=== PATIENT | male | born 1975 | race Caucasian/White ===

== ENCOUNTER 2021-02-23 12:38 | Inpatient (IN) | payer OTHER ==
[~2021-02-23] VITALS: Ht 180.3 cm; Wt 117.1 kg
[2021-02-23] MEDS ORDERED: JARDIANCE10 MG PO (19:34)
[2021-02-23] MEDS ORDERED: GLYBURIDE-METF1 EAC1 PO (19:34)
[2021-02-23] MEDS ORDERED: OMEPRAZOLE20 MG PO (19:34)
[2021-02-23] MEDS ORDERED: LANTUS SOL100 UNIT/1 SQ (19:35)
[2021-02-23 20:02] LABS: HEMOGLOBIN 14.9 gm/dl (14.0-17.5); RED BLOOD COUNT 4.78 M/UL (4.20-5.50); WHITE BLOOD COUNT 9.8 K/UL (4.5-11.0)
[2021-02-23 20:24] LABS: BUN/CREATININE RATIO 24 (0-10)
[2021-02-24 05:00] LABS: HEMOGLOBIN 14.8 gm/dl (14.0-17.5); RED BLOOD COUNT 4.71 M/UL (4.20-5.50); WHITE BLOOD COUNT 8.9 K/UL (4.5-11.0)
[2021-02-24 05:21] LABS: BUN/CREATININE RATIO 19 (0-10)
--- NOTE | 2021-02-24 14:28 | NUR ---
PATIENT VERY NON-COMPLIANT WITH MD ORDERS. EATING FOOD BROUGHT IN FROM OUTSIDE OF HOSPITAL, DRINKING M[place] DEW AND NO WATER. EDUCATED PATIENT ON WALKER USE AND THE IMPORTANCE OF MAINTAINING NON-WEIGHT BEARING TO AFFECTED EXTREMITY. PATIENT SEEN WALKING IN ROOM WITHOUT WALKER. REMINDED PATIENT OF IMPORTANCE TO HEALING TO KEEP WEIGHT OFF AFFECTED EXTREMITY AND TO FOLLOW DIETARY ORDERS PER MD TO KEEP BLOOD SUGAR MANAGEABLE. PATIENT IS AGREEABLE BUT THEN REMAINS NON-COMPLIANT. WILL CONTINUE TO REINFORCE EDUCATION.
[2021-02-25 04:52] LABS: HEMOGLOBIN 15.2 gm/dl (14.0-17.5); RED BLOOD COUNT 4.83 M/UL (4.20-5.50); WHITE BLOOD COUNT 9.8 K/UL (4.5-11.0)
[2021-02-25 05:15] LABS: BUN/CREATININE RATIO 18 (0-10)
--- NOTE | 2021-02-25 15:39 | NUR ---
PATIENT NOTED TO HAVE LEFT HIS ROOM TO GO OUTSIDE TO SMOKE. PATIENT HAS DONE THIS SEVERAL TIMES SINCE HE HAD BEEN ADMITTED. RN ASKED TRES BROWNING IF SHE HAD SEEN HIM AND SHE SAID THAT SHE SAW HIM APPROXIMATELY 30 MINUTES AGO SITTING IN HIS TRUCK IN THE PARKING LOT. NAM WENT DOWNSTAIRS TO SEE IF HIS TRUCK WAS STILL IN THE PARKING LOT AND IT WAS NOT. RN INFORMED SUPERVISOR TANK STORAGE. SUPERVISOR TANK STORAGE INSTRUCTED RN TO NOTIFY MD AND HAVE SECURITY SEARCH THE PERIMETER. RN NOTIFIED SECURITY, SECURITY PERFORMED A SEARCH WITH NO SUCCESS. RN CONTACTED PATIENT'S EMERGENCY CONTACT MANISH, HIS MOTHER, WHO STATED THAT HE HAD LEFT THE FACILITY AND WENT TO GET SOMETHING TO EAT WITH HIS GIRLFRIEND. RN THANKED MANISH FOR HER INFORMATION AND NOTIFIED PATIENT'S MD, DR. ROACH. MD INSTRUCTED RN TO WRITE A NOTE IN THE CHART THAT PATIENT HAD LEFT THE PREMISES AND CONTACT HIM IF HE RETURNED IN THE TIME FRAME PATIENT'S MOTHER MANISH HAD VERBALIZED. SUPERVISOR TANK STORAGE AND STAFF MADE AWARE.
--- NOTE | 2021-02-25 16:17 | NUR ---
PATIENT NOTED TO STILL BE GONE FROM FACILITY. RN CONTACTED PATIENT'S MOTHER, MANISH, AND NOTIFIED HER. RN INFORMED THIRD CONSTITUTION PARTY OF THE DANGERS OF LEAVING THE FACILITY BOTH WITH AN IV IN PLACE WELL WITHOUT NOTIFYING THE APPROPRIATE PARTIES AND ULTIMATELY LEAVING THE FACILITY AGAINST MEDICAL ADVICE. RN ASKED PATIENT'S MOTHER IS SHE HAD A PHONE NUMBER FOR HER SON SO THAT HE COULD BE TOLD DIRECTLY ABOUT THESE DANGERS AND THE MOTHER STATED THAT HE COULD ONLY TEXT ON HIS PHONE AND REFUSED TO GIVE PATIENT'S PHONE NUMBER TO RN. RN VERBALIZED UNDERSTANDING AND CONTINUED TO EXPRESS CONCERN ABOUT PATIENT'S RISK FOR INFECTION AND INJURY. RN INSTRUCTED PATIENT'S MOTHER TO INFORM PATIENT THAT THE FACILITY IS UNABLE TO HOLD HIS BED WHILE HE IS OFF THE PREMESIS AND CONTINUING TO IGNORE MEDICAL ADVICE. PATIENT'S MOTHER VERBALIZED UNDERSTANDING AND STATED SHE WOULD LET HIM KNOW.
--- NOTE | 2021-02-25 16:25 | NUR ---
PATIENT'S GIRLFRIEND, DEMETRIA, CALLED THE FACILITY AND INFORMED RN THAT THE PATIENT WAS ON HIS WAY BACK TO THE FACILITY AND WOULD BE THERE WITHIN 15 MINUTES. RN ASKED DEMETRIA FOR A CALL BACK NUMBER SO SHE COULD ASK WIRER PASSENGER CAR HOW TO PROCEED. WIRER PASSENGER CAR VERBALIZED THAT RN COULD ALLOW PATIENT 15 MORE MINUTES TO RETURN TO THE FACILITY, BUT AFTER THAT THE PATIENT WOULD BE DISCHARGED AN ELOPMENT AND MUST BE READMITTED THROUGH THE ER. RN CALLED PATIENT'S GIRLFRIEND BACK AND TOLD HER WHAT WIRER PASSENGER CAR SAID. PATIENT'S GIRLFRIEND VERBALIZED UNDERSTANDING AND STATED THAT THEY WERE ON THEIR WAY. RN MADE MD AND WIRER PASSENGER CAR AWARE. SECURITY ALSO MADE AWARE. STAFF ANTICIPATING PATIENT RETURN.
--- NOTE | 2021-02-25 16:59 | NUR ---
PATIENT HAS STILL NOT RETURNED TO FACILITY. UNABLE TO REACH GIRLFRIEND DEMETRIA ON THE CALL BACK NUMBER LEFT EARLIER. RN INFORMED AGING DEPARTMENT SUPERVISOR. HOUSE INSTRUCTED RN TO INFORM PATIENT IF HE ARRIVED TO ER THAT HE MUST BE READMITTED AND TO HAVE HIS IV REMOVED. RN NOTIFIED SECURITY TO WATCH FOR PATIENT AND PROVIDED DESCRIPTION OF PATIENT'S PRIVATE VEHICLE AND PERSONAL DESCRIPTION. RN INSTRUCTED SECURITY TO INFORM HER IF HE ARRIVED SO HIS IV COULD BE SAFELY REMOVED AND HE COULD BE EDUCATED ON THE DANGERS OF LEAVING WITHOUT NOTIFYING MEDICAL PERSONNEL. MADE AWARE.
--- NOTE | 2021-02-25 17:14 | NUR ---
PATIENT RECEIVED CALL FROM SECURITY THAT PATIENT WAS IN THE ER. RN NOTIFIED PLYWOOD MATCHER AND DR. CROFT OF PATIENT'S RETURN.
--- NOTE | 2021-02-25 17:18 | NUR ---
PATIENT RETURNED TO 5118. MANAGER OF EXHIBITIONS AND COLLECTIONS AND MD MADE AWARE. NO S/SX OF PAIN, DISCOMFORT, OR DISTRESS.
--- NOTE | 2021-02-25 17:34 | NUR ---
PATIENT'S HEART RATE NOTED TO BE RUNNING IN THE 160'S. PATIENT EDUCATED BY POWER SCREWDRIVER OPERATOR THAT IF HE LEAVES THE FACILITY WITHOUT NOTIFYING ANYONE, HIS BED WILL NOT BE HELD AGAIN. PATIENT STATED THAT HIS IV HAD FALLEN OUT ON HIS JOURNEY EARLIER. NO S/SX OF SKIN INJURY OR DRAINAGE NOTED TO PREVIOUS IV SITE. SITTING UP IN CHAIR WITH GIRLFRIEND AT BEDSIDE. CALL LIGHT WITHIN REACH.
[2021-02-26 04:36] LABS: BUN/CREATININE RATIO 14 (0-10)
--- NOTE | 2021-02-26 09:32 | NUR ---
DR. COLLADO NOTIFIED RN OF PATIENT'S DISCHARGE, RN INFORMED MD OF PATIENT'S REFUSAL OF HEART AND BLOOD PRESSURE MEDICATIONS. MD STATED SHE WAS AWARE OF PATIENT'S HISTORY OF REFUSAL OF MEDICATIONS AND THAT SHE WOULD PRESCRIBE MEDICATIONS OUTPATIENT ACCORDING TO PATIENT NEEDS AND COMPLIANCE WOULD BE UP TO PATIENT HE IS ALERT AND ORIENTED. RN VERBALIZED UNDERSTANDING.
[2021-02-26] MEDS ORDERED: LOPRESSOR 25 MG25 MG PO (09:47)
[2021-02-26] MEDS ORDERED: LANTUS SOL100 UNIT/1 SQ (09:47)
[2021-02-26] MEDS ORDERED: ACETAMINOPHEN325 MG PO (09:47)
[2021-02-26] MEDS ORDERED: BACTRIM DS TAB1 EACH PO (09:47)
[2021-02-26] MEDS ORDERED: LISINOPRIL5 MG PO (09:47)
[2021-02-26] MEDS ORDERED: crutches EXT (09:47)
--- NOTE | 2021-02-26 11:03 | NUR ---
INSTRUCTED PATIENT ON NEW MEDS KEEP SOCKS AND SHOES ON AT ALL TIMES CHECK FEET EACH NIGHT. REPORT ANY BROKENS AREAS OR REDNESS ON FEET. KEEP FOLLOW UP APPOINTMENTS. KEEP FOOT WOUND CLEAN AND DRY. VERBALIZED UNDERSTANDING. DEDE TAVERAS R.N.
== END 2021-02-26 12:03 | disposition home or self-care (01) | DRG 638 ==
LOC: M/S 17:23
PROVIDERS: Internal Medicine Infectious Disease; ADMIT Family Medicine
DX: E11.628 Type 2 diabetes mellitus with other skin complications (principal); L03.116 Cellulitis of left lower limb; E11.40 Type 2 diabetes mellitus with diabetic neuropathy, unspecified; Z20.822 Contact with and (suspected) exposure to COVID-19; I10 Essential (primary) hypertension; E78.5 Hyperlipidemia, unspecified; F41.9 Anxiety disorder, unspecified; K21.9 Gastro-esophageal reflux disease without esophagitis; E87.6 Hypokalemia; Z79.4 Long term (current) use of insulin; Z91.14 Patient's other noncompliance with medication regimen
CPT/HCPCS: 36415; 73630; 73721; 80048; 80053; 80202; 82962; 83036; 85025; 85027; 85652; 86140; 87040; 87070; 87077; 87186; 87205; J1650; J2543; J3370; J7050; U0002

== ENCOUNTER 2021-05-30 18:27 | Inpatient (IN) | payer OTHER ==
[~2021-05-30] VITALS: Ht 185.4 cm; Wt 122.5 kg
[~2021-05-30 18:27] MED LIST: ACETAMINOPHEN325 MG PO; BACTRIM DS TAB1 EACH PO; GLYBURIDE-METF1 EAC1 PO; JARDIANCE10 MG PO; LANTUS SOL100 UNIT/1 SQ; LISINOPRIL5 MG PO; LOPRESSOR 25 MG25 MG PO; OMEPRAZOLE20 MG PO; crutches EXT
[2021-05-30 20:16] LABS: HEMOGLOBIN 13.9 gm/dl (14.0-17.5); RED BLOOD COUNT 4.74 M/UL (4.20-5.50); WHITE BLOOD COUNT 13.3 K/UL (4.5-11.0)
[2021-05-30 20:40] LABS: BUN/CREATININE RATIO 23 (0-10)
[2021-05-31 03:49] LABS: HEMOGLOBIN 12.7 gm/dl (14.0-17.5); RED BLOOD COUNT 4.35 M/UL (4.20-5.50); WHITE BLOOD COUNT 11.6 K/UL (4.5-11.0)
[2021-05-31 04:13] LABS: BUN/CREATININE RATIO 21 (0-10)
[2021-05-31] MEDS ORDERED: LISINOPRIL40 MG PO (09:52)
[2021-05-31] MEDS ORDERED: AMLODIPINE BESYL5 MG PO (11:49)
[2021-05-31] MEDS ORDERED: BUSPIRONE HCL10 MG PO (11:50)
[2021-05-31] MEDS ORDERED: BASAGLAR K100 UNIT/1 SQ (11:50)
[2021-06-01 04:53] LABS: RED BLOOD COUNT 4.5 M/UL (4.20-5.50); WHITE BLOOD COUNT 10.1 K/UL (4.5-11.0)
[2021-06-01 05:15] LABS: BUN/CREATININE RATIO 17 (0-10)
[2021-06-02 04:32] LABS: HEMOGLOBIN 13.9 gm/dl (14.0-17.5); RED BLOOD COUNT 4.8 M/UL (4.20-5.50)
[2021-06-02 04:41] LABS: WHITE BLOOD COUNT 16.9 K/UL (4.5-11.0)
[2021-06-03 04:14] LABS: HEMOGLOBIN 13.3 gm/dl (14.0-17.5); RED BLOOD COUNT 4.52 M/UL (4.20-5.50); WHITE BLOOD COUNT 18.5 K/UL (4.5-11.0)
[2021-06-04 06:53] LABS: HEMOGLOBIN 13.3 gm/dl (14.0-17.5); RED BLOOD COUNT 4.62 M/UL (4.20-5.50); WHITE BLOOD COUNT 16.2 K/UL (4.5-11.0)
[2021-06-05 04:41] LABS: HEMOGLOBIN 13.7 gm/dl (14.0-17.5); RED BLOOD COUNT 4.7 M/UL (4.20-5.50); WHITE BLOOD COUNT 14.3 K/UL (4.5-11.0)
[2021-06-06 07:19] LABS: RED BLOOD COUNT 4.46 M/UL (4.20-5.50); WHITE BLOOD COUNT 13.7 K/UL (4.5-11.0)
[2021-06-06] MEDS ORDERED: ONDANSETRON4 MG/2 M2 IV (10:35)
[2021-06-06] MEDS ORDERED: PROTONIX 40 MG40 M1 PO (10:35)
[2021-06-06] MEDS ORDERED: LANTUS INS100 UTS/M1 SQ (10:35)
[2021-06-06] MEDS ORDERED: HEPARIN SO5000 UNIT2 SC (10:35)
[2021-06-06] MEDS ORDERED: HUMALOG 10100 UNITS/ SC (10:35)
[2021-06-06] MEDS ORDERED: LOPRESSOR 25 MG25 MG PO (10:35)
[2021-06-06] MEDS ORDERED: FIRST AID ANT28.4 G1 TOP (10:35)
[2021-06-06] MEDS ORDERED: PERCOCET 5/325 T1 EA PO (10:35)
[2021-06-06 11:14] LABS: COMPLEMENT C3, SERUM 164 mg/dL (82-167); COMPLEMENT C4, SERUM 40 mg/dL (12-38)
[2021-06-06 11:14] LABS: CREATININE, URINE 35.3 mg/dL (Not Estab.)
--- NOTE | 2021-06-06 14:55 | NUR ---
REPORT CALLED TO JESSICA AT [facility].
== END 2021-06-06 17:40 | DRG 239 ==
LOC: ER1 18:27 → MED SURG 4 21:22 → CDU 21:22 → MED SURG 4 05-31 15:44
PROVIDERS: Internal Medicine; Internal Medicine Nephrology; Physician Assistant; Physician Assistant Medical; Podiatrist Foot & Ankle Surgery; ADMIT Family Medicine
PROC: 0JBR0ZZ Excision of Left Foot Subcutaneous Tissue and Fascia, Open Approach (ICD-10-PCS; 2021-06-01)
PROC: 0Y6N0Z8 Detachment at Left Foot, Complete 5th Ray, Open Approach (ICD-10-PCS; principal; 2021-06-01 18:54)
PROC: 0HRNXK3 Replacement of Left Foot Skin with Nonautologous Tissue Substitute, Full Thickness, External Approach (ICD-10-PCS; principal; 2021-06-01 18:54)
DX: E11.52 Type 2 diabetes mellitus with diabetic peripheral angiopathy with gangrene (principal); A48.0 Gas gangrene; N17.0 Acute kidney failure with tubular necrosis; M86.8X7 Other osteomyelitis, ankle and foot; I47.1 Supraventricular tachycardia; E87.1 Hypo-osmolality and hyponatremia; E11.69 Type 2 diabetes mellitus with other specified complication; Z20.822 Contact with and (suspected) exposure to COVID-19; E11.42 Type 2 diabetes mellitus with diabetic polyneuropathy; E66.01 Morbid (severe) obesity due to excess calories; F41.9 Anxiety disorder, unspecified; K21.9 Gastro-esophageal reflux disease without esophagitis; E86.1 Hypovolemia; N52.9 Male erectile dysfunction, unspecified; I10 Essential (primary) hypertension; G89.29 Other chronic pain; F17.210 Nicotine dependence, cigarettes, uncomplicated; F19.10 Other psychoactive substance abuse, uncomplicated; Z79.4 Long term (current) use of insulin; Z91.14 Patient's other noncompliance with medication regimen; Z82.61 Family history of arthritis; Z68.35 Body mass index [BMI] 35.0-35.9, adult
CPT/HCPCS: 36415; 73630; 80048; 80053; 80202; 81001; 82043; 82550; 82553; 82565; 82570; 82803; 82962; 83605; 84156; 85025; 85027; 85652; 86140; 86160; 87040; 87070; 87077; 87186; 87205; 93926; 97161; 97165; 99284; G0378; J0295; J0360; J1100; J1335; J1644; J1650; J2001; J2185; J2405; J2543; J2704; J2795; J3370; J7030; J7040; J7070; J7120; Q4133; U0002

== ENCOUNTER 2022-07-01 20:15 | Observation (INO) | payer OTHER ==
[~2022-07-01] VITALS: Ht 185.4 cm; Wt 104.3 kg
[~2022-07-01 20:15] MED LIST changes: +AMLODIPINE BESYL5 MG PO; +BASAGLAR K100 UNIT/1 SQ; +BUSPIRONE HCL10 MG PO; +FIRST AID ANT28.4 G1 TOP; +HEPARIN SO5000 UNIT2 SC; +HUMALOG 10100 UNITS/ SC; +LANTUS INS100 UTS/M1 SQ; +LISINOPRIL40 MG PO; +ONDANSETRON4 MG/2 M2 IV; +PERCOCET 5/325 T1 EA PO; +PROTONIX 40 MG40 M1 PO
[2022-07-01 23:03] LABS: HEMOGLOBIN 14.3 gm/dl (14.0-17.5); RED BLOOD COUNT 4.78 M/UL (4.20-5.50); WHITE BLOOD COUNT 12.3 K/UL (4.5-11.0)
[2022-07-01 23:11] LABS: BUN/CREATININE RATIO 51 (0-10)
[2022-07-02 05:55] LABS: BUN/CREATININE RATIO 50 (0-10)
[2022-07-02] MEDS ORDERED: JARDIANCE10 MG PO (10:39)
[2022-07-02] MEDS ORDERED: GLYBURIDE-METF1 EAC1 PO (10:39)
[2022-07-02] MEDS ORDERED: OMEPRAZOLE20 MG PO (10:40)
[2022-07-02 11:49] LABS: BUN/CREATININE RATIO 49 (0-10)
[2022-07-02] MEDS ORDERED: ZESTRIL 40 MG T40 MG PO (17:41)
[2022-07-02] MEDS ORDERED: NORVASC5 MG PO (17:41)
[2022-07-03 09:20] LABS: BUN/CREATININE RATIO 41 (0-10)
[2022-07-03] MEDS ORDERED: GLYBURIDE-METF1 EAC1 PO (10:26)
[2022-07-03] MEDS ORDERED: LANTUS INS100 UTS/M1 SQ (10:26)
[2022-07-03] MEDS ORDERED: JARDIANCE10 MG PO (10:26)
[2022-07-03] MEDS ORDERED: NORVASC5 MG PO (10:26)
[2022-07-03] MEDS ORDERED: FLU VACCINE IM (10:26)
[2022-07-03] MEDS ORDERED: ZESTRIL 40 MG T40 MG PO (10:26)
== END 2022-07-03 11:45 | disposition home or self-care (01) ==
LOC: ER1 20:15 → CDU 07-02 03:06 → CCU 07-02 03:06
PROVIDERS: Physician Assistant Medical; ADMIT Internal Medicine
DX: E11.65 Type 2 diabetes mellitus with hyperglycemia (principal); E87.1 Hypo-osmolality and hyponatremia; E87.5 Hyperkalemia; E86.0 Dehydration; E11.69 Type 2 diabetes mellitus with other specified complication; M86.9 Osteomyelitis, unspecified; E87.2 Acidosis; J96.02 Acute respiratory failure with hypercapnia; R41.82 Altered mental status, unspecified; I10 Essential (primary) hypertension; K21.9 Gastro-esophageal reflux disease without esophagitis; F17.210 Nicotine dependence, cigarettes, uncomplicated; Z91.14 Patient's other noncompliance with medication regimen
CPT/HCPCS: 36415; 71045; 72128; 72131; 80048; 80053; 81001; 82009; 82550; 82553; 82800; 82947; 82962; 83036; 83605; 83735; 84100; 84439; 84443; 84484; 84681; 85025; 87040; 93005; 96361; 96374; 99285; G0378; J0153